=== PATIENT | male | born 1950 | race African-American/Black ===

== ENCOUNTER 2016-11-15 20:58 | Emergency (ER) | payer MEDICARE ==
[~2016-11-15] VITALS: Ht 188 cm; Wt 115.0 kg
[~2016-11-15 20:58] MED LIST: AMIODARONE200 MG PO; COREG6.25 MG PO; FLEXERIL PO; LIPITOR10 M1 PO; LIPITOR20 MG PO; LISINOPRIL20 MG PO; LISINOPRIL5 MG PO; MEDDOSEPAK PO; METFORMIN500 MG PO; SPIRONOLACT25 MG PO; TAMSULOSIN HCL0.4 MG PO; WARFARIN4 MG PO
[2016-11-15 21:32] VITALS: BP 128/70
== END 2016-11-15 23:05 | disposition left against medical advice (07) ==
LOC: ED 20:58 → LWOBS 23:05
DX: Z91.19 Patient's noncompliance with other medical treatment and regimen (principal)

== ENCOUNTER 2017-01-03 22:51 | Observation (INO) | payer MEDICARE ==
[~2017-01-03] VITALS: Ht 188 cm; Wt 107.0 kg
--- NOTE | 2017-01-03 23:10 | NUR ---
AFTER OBTAINING INITIaL VS AND WEIGHT PATIENT BROUGHT BACK TO ROOM 12. STATES THE DISCOMFORT IN HIS CHEST IS LIKE A "THROBBING."
[2017-01-03 23:37] LABS: HEMATOCRIT 38.9 % (39.0-50.0); HEMOGLOBIN 12.5 g/dl (14.0-18.0); IMMATURE GRANULOCYTES 0.8 % (0.0-1.0); MEAN CELL VOLUME 92.6 fL CALC (80.0-100.0); MEAN CORPUSCULAR HGB 29.8 pG CALC (26.0-32.0); MEAN CORPUSCULAR HGB CONC 32.1 g/L CALC (32.0-36.0); NEUT# 3.82 thou/uL (1.82-7.42); RED BLOOD COUNT 4.2 mill/uL (4.70-6.10); RED CELL DISTRI WIDTH 14.3 % (11.5-15.5)
--- NOTE | 2017-01-03 23:40 | NUR ---
PT IS PAINFREE SINCE ADM HERE SR NO ECTOPY NO ST OR T S1S2 REGULAR AND RHYTHMIC NO GALLOP,NO JVD.CLEAR BILAT BREATH SOUNDS.W/P/D SKIN CLEAR BREATH SOUNDS BILAT.
[2017-01-04] LABS: ALBUMIN 4.3 g/dL (3.2-5.0); ALKALINE PHOSPHATASE 50 u/l (38-126); ANION GAP 15 (6-22 (CALC)); BILIRUBIN, TOTAL 0.4 mg/dL (0.0-1.4); BUN 14 mg/dL (8-23); BUN/CREATININE RATIO 11 (12-20 (CALC)); CALCIUM 9.5 mg/dL (8.4-10.2); CARBON DIOXIDE 25 mmol/l (22-30); CHLORIDE 107 mmol/l (95-108); CREATININE 1.2 mg/dL (0.7-1.3); GFR > 60 ML/MIN (>=60 (CALC)); GFR FOR AFR.AMER. > 60 ML/MIN (>=60 (CALC)); GLUCOSE 101 mg/dL (82-115); INTERNATIONAL NORMALIZED RATIO 2.4 RATIO (0.7-1.3); POTASSIUM 4.2 mmol/l (3.5-5.1); PROTHROMBIN TIME 27.4 SECONDS (9.0-12.5); SGOT/AST 33 u/l (19-48); SGPT/ALT 42 u/l (11-66); SODIUM 142 mmol/l (137-146); TOTAL PROTEIN 7.3 g/dL (6.3-8.2)
[2017-01-04 00:11] LABS: MYOGLOBIN 114 ng/mL (0 - 121)
--- NOTE | 2017-01-04 01:00 | NUR ---
PATIENT INFORMED THAT THE ATTENDING PHYSICIAN HAS REQUESTED THAT PATIENT NOT BE MOVED TO THE FLOOR (MED SURG TELEMETRY) UNTIL 2ND TROPONIN IS RESULTED. THIS WILL BE AROUND 0400. PATIENT TRANSFERRED TO THE BARIATRIC STRETCHER FOR GREATER COMFORT.
[2017-01-04 01:01] LABS: URINE BILIRUBIN - DIPSTICK NEGATIVE (NEGATIVE); URINE BLOOD DIPSTICK NEGATIVE (NEGATIVE); URINE CLARITY CLEAR; URINE COLOR YELLOW; URINE GLUCOSE - DIPSTICK NEGATIVE (NEGATIVE); URINE KETONE TRACE mg/dL (NEGATIVE); URINE LEUK ESTERASE NEGATIVE (NEGATIVE); URINE NITRITE - DIPSTICK NEGATIVE (Negative); URINE PROTEIN - DIPSTICK NEGATIVE (NEG-TRACE); URINE SPECIFIC GRAVITY 1.025; URINE UROBILINOGEN - DIPSTICK 0.2 E.U./dL (0.2)
--- NOTE | 2017-01-04 01:40 | NUR ---
ASLEEP.NO DISCOMFORT OR DISTRESS.SR/SB WITHOUT ECTOPY NO ST T CHANGES
--- NOTE | 2017-01-04 03:29 | NUR ---
PHONE REPORT TO NURSE WING
--- NOTE | 2017-01-04 03:32 | NUR ---
TO MS2 VIA STRETCHER IN PAINFREE STABLE CONDITION
--- NOTE | 2017-01-04 03:35 | NUR ---
PT TRANSFERRED TO FLOOR VIA STRETCHER IN STABLE CONDITION ACCOMPANIED BY JT NESS;PT AMBULATED WITH WEAK GAIT TO STANDING SCALE AND BEDSIDE(PT USES CANE AT HOME);VS AND WT OBTAINED;PT STATED THAT HE HAS BEEN HAVING "THROBBING" CHEST PAIN BUT HAS BEEN RESOLVED SINCE BEING IN THE ER;PT ORIENTED TO ROOM AND CALL LIGHT SYSTEM;ASSESSMENT COMPLETED;IV SITE TO LAC FLUSHED AND PATENT;TELE MONITOR IN PLACE;SKIN INTACT;PT DENIES ANY PAIN OR DISCOMFORTS;RESPIRATIONS EVEN AND UNLABORED ON RA;PT EDUCATED TO CALL FOR ASSISTANCE IF NEEDED;SAFETY PRECAUTIONS REINFORCED;URINAL AT BEDSIDE;CALL LIGHT IN REACH;WILL CONTINUE TO MONITOR
[2017-01-04 03:45] VITALS: BP 125/56
[2017-01-04 06:18] LABS: CHOLESTEROL HDL RATIO 4.1 (<4.4 (CALC))
--- NOTE | 2017-01-04 07:00 | NUR ---
RECEIVED BEDSIDE REPORT FROM JOSE MARTIN WATERS. RESTING ON LEFT SIDE WITH EYES CLOSED, AWAKENS EASILY. RESPS EVEN AND UNLABORED ON ROOM AIR, TELE MONITOR IN PLACE. DENIES PAIN OR DISCOMFORT. PLAN OF CARE DISCUSSED. SAFETY PRECAUTIONS REINFORCED. BED IN LOWEST POSITION WITH WHEELS LOCKED. CALL LIGHT WITHIN REACH. ENCOURAGED PT TO CALL FOR ANY NEEDS.
[2017-01-04 07:38] VITALS: BP 108/59
[2017-01-04 07:44] VITALS: BP 108/59
--- NOTE | 2017-01-04 11:00 | NUR ---
DR ABDALLA IN TO SEE PT, NEW ORDERS RECEIVED.
--- NOTE | 2017-01-04 12:35 | NUR ---
Discharge instructions given. Patient verbalizes understanding of same. Discharged in stable condition via Wheelchair to Home with family. All belongings sent with pt.
== END 2017-01-04 12:35 | disposition home or self-care (01) ==
LOC: ENPENDDIS → ED 22:51 → ED-I 23:30 → MS2 01-04 00:16 → ED 01-04 00:16 → MS2 01-04 12:35
PROVIDERS: Emergency Medicine; ADMIT Internal Medicine; ATTEND Internal Medicine
DX: R07.2 Precordial pain (principal); I25.10 Atherosclerotic heart disease of native coronary artery without angina pectoris; I10 Essential (primary) hypertension; E11.9 Type 2 diabetes mellitus without complications; E78.5 Hyperlipidemia, unspecified; I48.2 Chronic atrial fibrillation; G89.29 Other chronic pain; M54.5 Low back pain; Z79.84 Long term (current) use of oral hypoglycemic drugs; Z79.01 Long term (current) use of anticoagulants